=== PATIENT | female | born 1960 | race African-American/Black ===

== ENCOUNTER 2023-11-21 23:51 | Inpatient (IN) | payer SELFPAY ==
[~2023-11-21] VITALS: Ht 162.6 cm; Wt 145.3 kg
[2023-11-22 00:25] LABS: BASOPHILS % 0.7 % (0.0-2.0); EOSINOPHILS % 2.2 % (0.0-5.0); HEMATOCRIT. 39.6 % (36.0-48.0); HEMOGLOBIN. 13.1 g/dL (12.0-16.0); LYMPHOCYTES % 29.6 % (20.0-50.0); MEAN CORPUSCULAR HEMOGLOBIN 29.6 pg (28.0-32.0); MEAN CORPUSCULAR HGB CONC 32.9 g/dL (31.0-37.0); MEAN CORPUSCULAR VOLUME 89.9 fL (81.0-99.0); MEAN PLATELET VOLUME 8.1 fl (7.4-10.4); MONOCYTES % 10.1 % (2.0-8.0); NEUTROPHILS % 57.4 % (40.0-76.0); PLATELET 246 x1000/uL (130-400); RED BLOOD CELL COUNT 4.41 mill/uL (4.2-5.4); RED CELL DISTRIBUTION WIDTH 13.9 % (11.6-14.6); WHITE BLOOD COUNT 9.9 x1000/uL (4.5-11.0)
[2023-11-22 00:28] LABS: CHLORIDE 110 mEq/L (98-107); POTASSIUM 3.9 mEq/L (3.5-5.1); SODIUM 144 mEq/L (136-145)
[2023-11-22 00:29] LABS: CARBON DIOXIDE 27 mEq/L (21-32)
[2023-11-22 00:30] LABS: CALCIUM 9.3 mg/dL (8.7-10.4)
[2023-11-22 00:35] LABS: CREATININE 1.3 mg/dL (0.6-1.0); GLUCOSE 107 mg/dL (70-105); UREA NITROGEN BLOOD 20 mg/dL (9-23)
[2023-11-22 00:36] LABS: TROPONIN I HIGH SENSITIVITY 6 ng/L (3.0-34)
[2023-11-22] MEDS ORDERED: ACETAMINOPHEN 500MG TABLET PO ONE (01:00)
[2023-11-22] MEDS ORDERED: ASPIRIN 81MG TABLET PO ONE (01:00)
[2023-11-22] MEDS ORDERED: PREDNISONE 20MG TABLET PO ONE (01:00)
[2023-11-22] MEDS ORDERED: NITROGLYCERIN 0.4MG TABLET SL SL ONE (01:00)
[2023-11-22] MEDS ORDERED: METHYLPREDNISOLONE SOD SUCC 125MG/2ML (ACT-O-VIAL) IV STA (01:15)
[2023-11-22 01:24] LABS: ALANINE AMINOTRANSFERASE 15 IU/L (10-49); ASPARTATE AMINOTRANSFERASE 18 IU/L (<34)
[2023-11-22 01:25] LABS: ALBUMIN 4.3 g/dL (3.2-4.8); BILIRUBIN DIRECT 0.2 mg/dL (<=3.0); BILIRUBIN TOTAL 0.5 mg/dL (0.1-1.0); PROTEIN TOTAL 7.6 g/dL (6.0-8.3)
[2023-11-22] MEDS: ALBUTEROL (0.083%) 2.5MG/3ML NEB HHN STA (01:35)
[2023-11-22 01:36] VITALS: PULSE 96; RESP 18; O2SAT 98
[2023-11-22] MEDS: IPRATROPIUM BROMIDE (0.02%) 0.5MG/2.5ML NEB HHN STA (01:36)
[2023-11-22] MEDS: NITROGLYCERIN 0.4MG TABLET SL SL NR (01:45)
[2023-11-22] MEDS: ASPIRIN 81MG TABLET PO NR (01:45)
[2023-11-22] MEDS: PREDNISONE 20MG TABLET PO NR (01:45)
[2023-11-22] MEDS: ACETAMINOPHEN 500MG TABLET PO NR (01:45)
[2023-11-22] MEDS: ALBUTEROL (0.083%) 2.5MG/3ML NEB HHN ONE (01:58)
[2023-11-22 02:14] LABS: D-DIMER 0.8 mg/L FEU (<0.50); INR 0.9; PARTIAL THROMBOPLASTIN TIME 28.1 sec (23.4-31.0); PROTHROMBIN TIME 10.5 sec (9.6-11.0)
[2023-11-22] MEDS: ENOXAPARIN 100MG/ML SYR SUBCUT ONE (02:30)
[2023-11-22] MEDS: METHYLPREDNISOLONE SOD SUCC 125MG/2ML (ACT-O-VIAL) IV NR (04:34)
[2023-11-22] MEDS ORDERED: DOCUSATE SODIUM 100MG CAPSULE PO PRN (12:00)
[2023-11-22] MEDS ORDERED: ONDANSETRON HCL 4MG/2ML INJ IV PRN (12:00)
[2023-11-22] MEDS ORDERED: ACETAMINOPHEN 325MG TABLET PO PRN (12:00)
[2023-11-22] MEDS ORDERED: IPRATROPIUM/ALBUTEROL 0.5-3(2.5)MG/3ML NEB HHN PRN (12:00)
[2023-11-22 12:43] LABS: T4 FREE 1.31 ng/dL (0.89-1.76); THYROID STIMULATING HORMONE 0.16 uIU/mL (0.55-4.78)
[2023-11-22 20:00] VITALS: BP 175/95; PULSE 76; RESP 21; TEMP 37.2252; TEMP 37.252; O2SAT 98
[2023-11-22] MEDS: ATORVASTATIN CALCIUM 20MG TABLET PO SCH (21:48)
[2023-11-22] MEDS: AMLODIPINE 5MG TABLET PO SCH (21:49)
[2023-11-22] MEDS: CLONIDINE 0.1MG TABLET PO PRN (21:49)
[2023-11-23] VITALS (10 sets, daily range): BP systolic 124–162; BP diastolic 63–90; PULSE 73–101; RESP 14–23; TEMP 36.6696–37.05852; O2SAT 92–99
[2023-11-23] MEDS: IPRATROPIUM/ALBUTEROL 0.5-3(2.5)MG/3ML NEB HHN SCH ×2 (01:55→21:04)
[2023-11-23 07:04] LABS: BASOPHILS % 0.2 % (0.0-2.0); HEMATOCRIT. 36.2 % (36.0-48.0); HEMOGLOBIN. 11.8 g/dL (12.0-16.0); LYMPHOCYTES % 20.2 % (20.0-50.0); MEAN CORPUSCULAR HEMOGLOBIN 29.3 pg (28.0-32.0); MEAN CORPUSCULAR HGB CONC 32.4 g/dL (31.0-37.0); MEAN CORPUSCULAR VOLUME 90.3 fL (81.0-99.0); MEAN PLATELET VOLUME 8.3 fl (7.4-10.4); MONOCYTES % 7.2 % (2.0-8.0); NEUTROPHILS % 72.4 % (40.0-76.0); PLATELET 243 x1000/uL (130-400); RED BLOOD CELL COUNT 4.01 mill/uL (4.2-5.4); RED CELL DISTRIBUTION WIDTH 14.1 % (11.6-14.6); WHITE BLOOD COUNT 13.8 x1000/uL (4.5-11.0)
[2023-11-23 07:05] LABS: CHLORIDE 111 mEq/L (98-107); POTASSIUM 3.6 mEq/L (3.5-5.1); SODIUM 144 mEq/L (136-145)
[2023-11-23 07:06] LABS: CALCIUM 9.3 mg/dL (8.7-10.4); CARBON DIOXIDE 26 mEq/L (21-32)
[2023-11-23 07:07] LABS: TROPONIN I HIGH SENSITIVITY 5 ng/L (3.0-34)
[2023-11-23 07:11] LABS: GLUCOSE 109 mg/dL (70-105); UREA NITROGEN BLOOD 19 mg/dL (9-23)
[2023-11-23 07:13] LABS: ALANINE AMINOTRANSFERASE 11 IU/L (10-49); ASPARTATE AMINOTRANSFERASE 13 IU/L (<34); BILIRUBIN TOTAL 0.4 mg/dL (0.1-1.0)
[2023-11-23] MEDS: ASPIRIN 81MG EC TABLET PO SCH (08:44)
[2023-11-23] MEDS: ACETAMINOPHEN 325MG TABLET PO PRN (14:06)
[2023-11-23] MEDS: METFORMIN HCL 500MG TABLET PO SCH (14:38)
[2023-11-23] MEDS: LISINOPRIL 5MG TABLET PO SCH (14:38)
[2023-11-23] MEDS: HYDROCODONE/ACETAMINOPHEN 5/325MG TABLET PO PRN (14:39)
[2023-11-23] MEDS: LIDOCAINE 5% PATCH TOP SCH (14:40)
[2023-11-23] MEDS ORDERED: NALOXONE HCL 0.4MG/ML VIAL IV PRN (15:15)
[2023-11-24] VITALS (9 sets, daily range): BP systolic 130–150; BP diastolic 62–92; PULSE 62–91; RESP 14–26; TEMP 36.6696–37.05852; O2SAT 93–98
[2023-11-24 07:15] LABS: BASOPHILS % 0.4 % (0.0-2.0); EOSINOPHILS % 0.9 % (0.0-5.0); HEMATOCRIT. 38.4 % (36.0-48.0); HEMOGLOBIN. 12.5 g/dL (12.0-16.0); LYMPHOCYTES % 40.2 % (20.0-50.0); MEAN CORPUSCULAR HEMOGLOBIN 29.6 pg (28.0-32.0); MEAN CORPUSCULAR HGB CONC 32.6 g/dL (31.0-37.0); MEAN CORPUSCULAR VOLUME 90.7 fL (81.0-99.0); MEAN PLATELET VOLUME 8.3 fl (7.4-10.4); MONOCYTES % 7.3 % (2.0-8.0); NEUTROPHILS % 51.2 % (40.0-76.0); PLATELET 247 x1000/uL (130-400); RED BLOOD CELL COUNT 4.23 mill/uL (4.2-5.4); RED CELL DISTRIBUTION WIDTH 14.3 % (11.6-14.6); WHITE BLOOD COUNT 8.8 x1000/uL (4.5-11.0)
[2023-11-24 07:22] LABS: CHLORIDE 109 mEq/L (98-107); POTASSIUM 3.8 mEq/L (3.5-5.1); SODIUM 142 mEq/L (136-145)
[2023-11-24 07:23] LABS: CARBON DIOXIDE 26 mEq/L (21-32)
[2023-11-24 07:24] LABS: CALCIUM 9.1 mg/dL (8.7-10.4)
[2023-11-24 07:28] LABS: CREATININE 1.1 mg/dL (0.6-1.0); GLUCOSE 111 mg/dL (70-105)
[2023-11-24 07:29] LABS: UREA NITROGEN BLOOD 22 mg/dL (9-23)
[2023-11-24] MEDS ORDERED: ATOR20TA PO (14:29)
[2023-11-24] MEDS ORDERED: AMLO5TAB88 PO (14:29)
[2023-11-24] MEDS ORDERED: ASPI-1406 PO (14:29)
[2023-11-24] MEDS ORDERED: LISI-186 PO (14:29)
[2023-11-24] MEDS ORDERED: METF-414 PO (14:29)
== END 2023-11-24 17:10 | disposition home or self-care (01) | DRG 140 ==
LOC: ER 23:51 → 5WST 11-22 02:24 → 3WST 11-22 19:05
PROVIDERS: ADMIT Family Medicine Adult Medicine; ATTEND Family Medicine Adult Medicine
DX: J44.1 Chronic obstructive pulmonary disease with (acute) exacerbation (principal); I24.9 Acute ischemic heart disease, unspecified; I11.9 Hypertensive heart disease without heart failure; Z68.43 Body mass index [BMI] 50.0-59.9, adult; E11.9 Type 2 diabetes mellitus without complications; E66.01 Morbid (severe) obesity due to excess calories; E78.5 Hyperlipidemia, unspecified; G47.33 Obstructive sleep apnea (adult) (pediatric); J06.9 Acute upper respiratory infection, unspecified; F17.210 Nicotine dependence, cigarettes, uncomplicated; Z79.82 Long term (current) use of aspirin; Z79.899 Other long term (current) drug therapy
CPT/HCPCS: 36415; 71045; 71275; 73200; 80048; 80053; 80061; 80076; 83036; 83880; 84439; 84443; 84481; 84484; 85025; 85379; 93005; 93306; 94640; 99285; J1650; J2919; J7512